=== PATIENT | male | born 1945 ===

== ENCOUNTER 2025-06-01 14:52 | Outpatient (CLI) | payer SELFPAY ==
--- NOTE | ~2025-06-01 | XR_ITS ---
EXAMINATION: XR shoulder RT min 2V, 06/01/2025 15:25 DIRECTOR REGULATORY COMPLIANCE HISTORY: Pain in right upper arm COMPARISON: No comparisons available. Findings: No acute fracture or malalignment. No significant degenerative changes. Soft tissues unremarkable. Impression: No acute fracture or malalignment. Reviewed, dictated and finalized at location P. CTOR REGULATORY COMPLIANCE Impression: No acute fracture or malalignment.
--- NOTE | ~2025-06-01 | XR_ITS ---
EXAMINATION: XR humerus RT, 06/01/2025 15:25 INSPECTOR PLUG SEAM HISTORY: Pain in right upper arm COMPARISON: No comparisons available. Findings: No acute fracture or malalignment. No significant degenerative changes. Soft tissues unremarkable. Impression: No acute fracture or malalignment. Reviewed, dictated and finalized at location P. ECTOR PLUG SEAM Impression: No acute fracture or malalignment.
== END 2025-06-01 14:53 | disposition home or self-care (01) ==
DX: M25.511 Pain in right shoulder (principal); M79.621 Pain in right upper arm
CPT/HCPCS: 73030; 73060